=== PATIENT | female | born 1975 | race African-American/Black ===

== ENCOUNTER → 2024-12-14 | Day surgery (SDC) | payer OTHER | LOC: CSHMAMMO 07:27 | PROVIDERS: ATTEND Nurse Practitioner Family | PROC: 0H95XZX Drainage of Chest Skin, External Approach, Diagnostic (ICD-10-PCS; principal; 2024-12-14) | DX: D24.1 Benign neoplasm of right breast (principal); R92.1 Mammographic calcification found on diagnostic imaging of breast; N60.11 Diffuse cystic mastopathy of right breast | CPT/HCPCS: 19081; 76098; 88305 ==